=== PATIENT | female | born 2000 | race Caucasian/White ===

== ENCOUNTER 2020-05-14 12:02 | Emergency (ER) | payer MEDICAID ==
[~2020-05-14] VITALS: Ht 157.5 cm; Wt 63.0 kg
[2020-05-14 12:29] VITALS: BP 114/45
[2020-05-14] MEDS ORDERED: NAPR-1176 MT (12:59)
== END 2020-05-14 13:10 | disposition home or self-care (01) ==
LOC: ER 12:02
DX: M79.18 Myalgia, other site (principal)
CPT/HCPCS: 99282

== ENCOUNTER 2020-08-03 12:11 | Emergency (ER) | payer BC, MEDICAID ==
[~2020-08-03] VITALS: Ht 157.5 cm; Wt 59.0 kg
[~2020-08-03 12:11] MED LIST: NAPR-1176 MT
[2020-08-03] MEDS ORDERED: SODIUM CHLORIDE 0.9% 1,000 ML IV ONE (12:45)
[2020-08-03 13:03] LABS: BASOPHILS % 0.6 % (0.0-2.0); EOSINOPHILS % 1.2 % (0.0-5.0); HEMATOCRIT. 37.1 % (36.0-48.0); HEMOGLOBIN. 13.2 g/dL (12.0-16.0); MEAN CORPUSCULAR HEMOGLOBIN 31.3 pg (28.0-32.0); MEAN CORPUSCULAR VOLUME 87.9 fL (81.0-99.0); MEAN PLATELET VOLUME 8.5 fl (7.4-10.4); MONOCYTES % 11.9 % (2.0-8.0); NEUTROPHILS % 51.3 % (40.0-76.0); PLATELET 250 x1000/uL (130-400); RED BLOOD CELL COUNT 4.22 mill/uL (4.2-5.4); RED CELL DISTRIBUTION WIDTH 12.6 % (11.6-14.6)
[2020-08-03 13:07] LABS: CHLORIDE 106 mEq/L (98-107)
[2020-08-03 13:18] LABS: CLARITY URINE TURBID (CLEAR); COLOR URINE YELLOW (YELLOW); KETONES URINE NEGATIVE (NEGATIVE); LEUKOCYTE ESTERASE URINE NEGATIVE (NEGATIVE); NITRITE URINE NEGATIVE (NEGATIVE); OCCULT BLOOD URINE NEGATIVE (NEGATIVE); PROTEIN URINE NEGATIVE (NEGATIVE); SPECIFIC GRAVITY URINE 1.022 (1.005-1.030); UROBILINOGEN URINE 0.2 E.U./dL (0.2-1.0)
[2020-08-03 13:27] LABS: HCG SCREEN NEGATIVE
[2020-08-03 14:37] VITALS: BP 122/74
== END 2020-08-03 14:39 | disposition home or self-care (01) ==
LOC: ER 12:11
DX: R10.30 Lower abdominal pain, unspecified (principal); R19.7 Diarrhea, unspecified
CPT/HCPCS: 36415; 80053; 81003; 81025; 83690; 84703; 85025; 96360; 99283; J7030

== ENCOUNTER 2021-12-03 10:53 | Emergency (ER) | payer MEDICAID ==
[~2021-12-03] VITALS: Ht 157.5 cm; Wt 61.0 kg
[2021-12-03 11:25] VITALS: BP 120/78
[2021-12-03] MEDS ORDERED: FAMOTIDINE 20MG TABLET PO ONE (16:45)
[2021-12-03] MEDS ORDERED: MAGNESIUM/ALUMINUM HYDROXIDE/SIMETHICONE 30ML UDC PO ONE (16:45)
[2021-12-03] MEDS ORDERED: MAG-55 MT (18:07)
[2021-12-03] MEDS ORDERED: FAMO-135 MT (18:07)
== END 2021-12-03 18:34 | disposition home or self-care (01) ==
LOC: ER 10:53
DX: R07.89 Other chest pain (principal); R10.13 Epigastric pain
CPT/HCPCS: 71045; 93005; 99283